=== PATIENT | male | born 1965 | race Caucasian/White ===

== ENCOUNTER 2017-08-25 21:47 | Emergency (ER) | payer BC ==
[~2017-08-25] VITALS: Ht 182.9 cm; Wt 95.3 kg
[~2017-08-25 21:47] MED LIST: AMOXICILLIN
[2017-08-25 22:06] VITALS: BP_SYST 131
[2017-08-26] MEDS ORDERED: DIPH-TET Vacc 0.5 ML VIAL I.M. ONE (00:30)
[2017-08-26 00:36] VITALS: BP_SYST 133
== END 2017-08-26 00:36 | disposition home or self-care (01) ==
LOC: SED 21:47
DX: S61.012A Laceration without foreign body of left thumb without damage to nail, initial encounter (principal); W26.0XXA Contact with knife, initial encounter; Y93.G3 Activity, cooking and baking; Y92.090 Kitchen in other non-institutional residence as the place of occurrence of the external cause; Y99.8 Other external cause status
CPT/HCPCS: 90714; 99283